=== PATIENT | female | born 1970 ===

== ENCOUNTER 2021-07-04 17:19 | Inpatient (IN) | payer OTHER ==
[~2021-07-04] VITALS: Ht 167.6 cm; Wt 98.8 kg
[2021-07-04] MEDS ORDERED: AZITHROMYCIN 500MG/ 250ML 250 ML IV ONE (17:45)
[2021-07-04] MEDS ORDERED: cefTRIAXone 1GM/50ML D5W 50 ML IV ONE (17:45)
[2021-07-04] MEDS ORDERED: DexAMETHasone SOD PHOS 10MG/1ML VIAL INJ IV ONE (17:45)
[2021-07-04] MEDS ORDERED: MORPHINE SULFATE 4 MG/ML SYR/VIAL IV PRN (18:45)
[2021-07-04] MEDS ORDERED: HYDROcodone-ACET 5/325MG TAB PO PRN (18:45)
[2021-07-04] MEDS ORDERED: REMDESIVIR PER PHARMACY 0 ML IV SCH (18:45)
[2021-07-04] MEDS ORDERED: NITROGLYCERIN 0.4 MG SL TAB SL PRN (18:45)
[2021-07-04] MEDS ORDERED: MORPHINE SULFATE INJECTION 2 MG/ML SYRG IV PRN (18:45)
[2021-07-04] MEDS ORDERED: TEMAZEPAM 15 MG CAP PO PRN (18:45)
[2021-07-04 19:12] LABS: Basophils # (auto) 0 10 ^3/uL (0-0.2); Basophils % (auto) 0.8 % (0.0-2.0); Eosinophils # (auto) 0 10 ^3/uL (0-0.8); Eosinophils % (auto) 0.1 % (0.0-7.0); Hematocrit 42.2 % (36.0-46.0); Hemoglobin 14.2 g/dL (12.2-16.2); Lymphocytes # (auto) 0.9 10 ^3/uL (0.4-5.4); Lymphocytes % (auto) 17.3 % (10.0-50.0); Mean Corpuscular Hgb Conc. 33.6 g/dL (32.0-36.0); Mean Corpuscular Volume 83.4 fL (80.0-100.0); Monocytes # (auto) 0.6 10 ^3/uL (0-1.3); Monocytes % (auto) 11.3 % (0.0-12.0); Neutrophils # (auto) 3.8 10 ^3/uL (1.6-8.6); Neutrophils % (auto) 70.5 % (37.0-80.0); Nucleated Red Blood Cells % 0.1 %; Red Blood Cells 5.06 10^6/uL (4.0-5.20); White Blood Cell 5.4 10^3/uL (4.4-10.8)
[2021-07-04] MEDS ORDERED: PROMETHAZINE W/CODEINE 5 ML ORAL SYRUP GT PRN (19:15)
[2021-07-04 19:28] LABS: Anion Gap 10 (5-15); Blood Urea Nitrogen 11 mg/dL (7-18); Carbon Dioxide 26 mmol/L (21-32); Chloride 97 mmol/L (98-107); Potassium 3.9 mmol/L (3.5-5.1); Sodium 133 mmol/L (136-145)
[2021-07-04 19:31] LABS: Alanine Aminotransferase 67 U/L (13-56); Aspartate Aminotransferase 43 U/L (15-37); BUN/Creatinine Ratio 10.7; GFR African American 72 mL/min; GFR Non-African American 60 mL/min; Glucose 354 mg/dL (74-106)
[2021-07-04 19:47] LABS: Alkaline Phosphatase 121 U/L (45-117); Bilirubin, Total 0.4 mg/dL (0.2-1.0); Total Protein 8.1 g/dL (6.4-8.2)
[2021-07-04 22:23] LABS: Urine Bacteria FEW /hpf (None Seen); Urine Blood TRACE /uL (Negative); Urine Hyaline Cast FEW /lpf (0 - 2); Urine Mucus FEW (None Seen); Urine Specific Gravity 1.027 (1.001-1.035); Urine WBC <1 /hpf (0 - 5)
[2021-07-05] VITALS (7 sets, daily range): BP systolic 108–148; BP diastolic 57–84
[2021-07-05] MEDS: ACETAMINOPHEN 325 MG TAB PO PRN (02:33)
[2021-07-05] MEDS ORDERED: IVER3TAB PO (03:31)
[2021-07-05] MEDS ORDERED: HYDR-4188 PO (03:31)
[2021-07-05 05:56] LABS: Basophils # (auto) 0 10 ^3/uL (0-0.2); Basophils % (auto) 0.3 % (0.0-2.0); Eosinophils # (auto) 0 10 ^3/uL (0-0.8); Hematocrit 39.9 % (36.0-46.0); Hemoglobin 13.3 g/dL (12.2-16.2); Lymphocytes # (auto) 0.7 10 ^3/uL (0.4-5.4); Mean Corpuscular Hemoglobin 27.9 pg (28.0-32.0); Mean Corpuscular Hgb Conc. 33.2 g/dL (32.0-36.0); Mean Corpuscular Volume 83.9 fL (80.0-100.0); Monocytes # (auto) 0.5 10 ^3/uL (0-1.3); Neutrophils # (auto) 6.2 10 ^3/uL (1.6-8.6); Neutrophils % (auto) 83.7 % (37.0-80.0); Nucleated Red Blood Cells % 0.1 %; Red Blood Cells 4.75 10^6/uL (4.0-5.20); Red Cell Distribution Width 15.1 % (11.8-14.3); White Blood Cell 7.5 10^3/uL (4.4-10.8)
[2021-07-05 06:22] LABS: Potassium 4.3 mmol/L (3.5-5.1)
[2021-07-05 06:30] LABS: Albumin 2.9 g/dL (3.4-5.0); BUN/Creatinine Ratio 18.4; Bilirubin, Total 0.4 mg/dL (0.2-1.0); Calcium 8.7 mg/dL (8.5-10.1); Total Protein 7.3 g/dL (6.4-8.2)
[2021-07-05] MEDS ORDERED: DEXTROSE (50%) 50ML SYRG IV PRN ×2 (08:45→13:30)
[2021-07-05] MEDS: AZITHROMYCIN 500MG/ 250ML 250 ML IV SCH (09:01)
[2021-07-05] MEDS: ENOXAPARIN SOD 40 MG/0.4 ML SYRINGE SC SCH (09:01)
[2021-07-05] MEDS: CHOLECALCIFEROL (VITD3) 2,000 UNIT CAP/TAB PO SCH (09:02)
[2021-07-05] MEDS: ASCORBIC ACID 500 MG TAB PO SCH (09:02)
[2021-07-05] MEDS: PANTOPRAZOLE 40 MG TAB PO SCH (09:02)
[2021-07-05] MEDS ORDERED: InsuLIN REG 1unit/0.01ml Soln (100units/ml) SC SCH ×2 (11:30→22:00)
[2021-07-05] MEDS: ACCU-CHEK COMFORT CURVE STRIP VI SCH ×5 (11:30→22:00)
[2021-07-05] MEDS ORDERED: InsuLIN REG 1unit/0.01ml Soln (100units/ml) SC ONE (11:30)
[2021-07-05] MEDS ORDERED: REMDESIVIR 200 MG in NS 210ml LOADING DOSE ADULT IV ONE (15:00)
[2021-07-05] MEDS: InsuLIN REG 1unit/0.01ml Soln (100units/ml) SC SCH ×2 (16:58→22:00)
[2021-07-06 05:00] VITALS: BP 132/77
[2021-07-06] MEDS: ACCU-CHEK COMFORT CURVE STRIP VI SCH ×6 (06:16→21:20)
[2021-07-06] MEDS: InsuLIN REG 1unit/0.01ml Soln (100units/ml) SC SCH ×4 (06:18→21:22)
[2021-07-06 08:28] VITALS: BP 138/79
[2021-07-06] MEDS: AZITHROMYCIN 500MG/ 250ML 250 ML IV SCH (11:11)
[2021-07-06] MEDS: PANTOPRAZOLE 40 MG TAB PO SCH (11:11)
[2021-07-06] MEDS: CHOLECALCIFEROL (VITD3) 2,000 UNIT CAP/TAB PO SCH (11:11)
[2021-07-06] MEDS: ASCORBIC ACID 500 MG TAB PO SCH (11:11)
[2021-07-06] MEDS: ENOXAPARIN SOD 40 MG/0.4 ML SYRINGE SC SCH (11:12)
[2021-07-06 12:31] VITALS: BP 130/78
[2021-07-06] MEDS: REMDESIVIR 100mg 100 MG in SODIUM CHL 0.9% 230 ML IV SCH (14:45)
[2021-07-06 16:36] VITALS: BP 148/84
[2021-07-06] MEDS: INSULIN LANTUS (GLARGINE) 1 /0.01ml (100units/ml) SC SCH (21:22)
[2021-07-06 22:00] VITALS: BP 126/65
[2021-07-07] MEDS: ACETAMINOPHEN 325 MG TAB PO PRN (04:32)
[2021-07-07 05:00] VITALS: BP 141/84
[2021-07-07 06:01] LABS: Potassium 3.3 mmol/L (3.5-5.1)
[2021-07-07 06:07] LABS: Albumin 2.4 g/dL (3.4-5.0); BUN/Creatinine Ratio 21.7; Calcium 8.6 mg/dL (8.5-10.1)
[2021-07-07] MEDS: ACCU-CHEK COMFORT CURVE STRIP VI SCH ×4 (06:12→22:05)
[2021-07-07] MEDS: INSULIN LANTUS (GLARGINE) 1 /0.01ml (100units/ml) SC SCH ×2 (06:16→22:01)
[2021-07-07] MEDS: InsuLIN REG 1unit/0.01ml Soln (100units/ml) SC SCH ×4 (06:16→21:59)
[2021-07-07 06:18] LABS: Bilirubin, Total 0.4 mg/dL (0.2-1.0); Total Protein 6.6 g/dL (6.4-8.2)
[2021-07-07 09:00] VITALS: BP 132/69
[2021-07-07] MEDS: AZITHROMYCIN 500MG/ 250ML 250 ML IV SCH (09:03)
[2021-07-07] MEDS: PANTOPRAZOLE 40 MG TAB PO SCH (09:03)
[2021-07-07] MEDS: ASCORBIC ACID 500 MG TAB PO SCH (09:03)
[2021-07-07] MEDS: CHOLECALCIFEROL (VITD3) 2,000 UNIT CAP/TAB PO SCH (09:03)
[2021-07-07] MEDS: ENOXAPARIN SOD 40 MG/0.4 ML SYRINGE SC SCH (09:03)
[2021-07-07 12:22] VITALS: BP 142/80
[2021-07-07 14:02] LABS: Basophils # (auto) 0 10 ^3/uL (0-0.2); Basophils % (auto) 0.4 % (0.0-2.0); Eosinophils # (auto) 0 10 ^3/uL (0-0.8); Eosinophils % (auto) 0.4 % (0.0-7.0); Hematocrit 40.4 % (36.0-46.0); Hemoglobin 13.1 g/dL (12.2-16.2); Lymphocytes % (auto) 14.6 % (10.0-50.0); Mean Corpuscular Hemoglobin 27.3 pg (28.0-32.0); Mean Corpuscular Hgb Conc. 32.6 g/dL (32.0-36.0); Mean Corpuscular Volume 83.8 fL (80.0-100.0); Monocytes # (auto) 0.7 10 ^3/uL (0-1.3); Monocytes % (auto) 11.3 % (0.0-12.0); Neutrophils # (auto) 4.8 10 ^3/uL (1.6-8.6); Neutrophils % (auto) 73.3 % (37.0-80.0); Nucleated Red Blood Cells % 0.1 %; Red Blood Cells 4.82 10^6/uL (4.0-5.20); White Blood Cell 6.6 10^3/uL (4.4-10.8)
[2021-07-07 14:26] LABS: Magnesium 2.4 mg/dL (1.6-2.6)
[2021-07-07 14:35] LABS: CRP High Sensitivity 12.3 mg/dL (< 0.3)
[2021-07-07 14:37] LABS: Thyroid Stimulating Hormone 0.62 uIU/mL (0.358-3.74)
[2021-07-07] MEDS: IVERMECTIN 3 MG TAB PO SCH (14:37)
[2021-07-07] MEDS: REMDESIVIR 100mg 100 MG in SODIUM CHL 0.9% 230 ML IV SCH (15:53)
[2021-07-07 22:00] VITALS: BP 128/77
[2021-07-08 05:00] VITALS: BP 136/74
[2021-07-08] MEDS: IVERMECTIN 3 MG TAB PO SCH (06:29)
[2021-07-08] MEDS: ACCU-CHEK COMFORT CURVE STRIP VI SCH (06:29)
[2021-07-08] MEDS: INSULIN LANTUS (GLARGINE) 1 /0.01ml (100units/ml) SC SCH ×2 (06:31→22:00)
[2021-07-08] MEDS: InsuLIN REG 1unit/0.01ml Soln (100units/ml) SC SCH ×4 (06:33→22:04)
[2021-07-08 07:05] LABS: Basophils # (auto) 0 10 ^3/uL (0-0.2); Basophils % (auto) 0.4 % (0.0-2.0); Eosinophils # (auto) 0.1 10 ^3/uL (0-0.8); Eosinophils % (auto) 0.9 % (0.0-7.0); Hematocrit 38.3 % (36.0-46.0); Hemoglobin 12.7 g/dL (12.2-16.2); Lymphocytes # (auto) 1.2 10 ^3/uL (0.4-5.4); Lymphocytes % (auto) 16.1 % (10.0-50.0); Mean Corpuscular Hemoglobin 27.4 pg (28.0-32.0); Mean Corpuscular Hgb Conc. 33.2 g/dL (32.0-36.0); Mean Corpuscular Volume 82.5 fL (80.0-100.0); Monocytes % (auto) 12.7 % (0.0-12.0); Neutrophils # (auto) 5.3 10 ^3/uL (1.6-8.6); Neutrophils % (auto) 69.9 % (37.0-80.0); Nucleated Red Blood Cells % 0.1 %; Red Blood Cells 4.64 10^6/uL (4.0-5.20); Red Cell Distribution Width 14.4 % (11.8-14.3); White Blood Cell 7.6 10^3/uL (4.4-10.8)
[2021-07-08 07:29] LABS: Potassium 3.6 mmol/L (3.5-5.1)
[2021-07-08 07:35] LABS: Albumin 2.2 g/dL (3.4-5.0); BUN/Creatinine Ratio 10.6; Calcium 8.6 mg/dL (8.5-10.1)
[2021-07-08 07:37] LABS: Bilirubin, Total 0.5 mg/dL (0.2-1.0); Total Protein 6.4 g/dL (6.4-8.2)
[2021-07-08 09:00] VITALS: BP 131/84
[2021-07-08] MEDS: AZITHROMYCIN 500MG/ 250ML 250 ML IV SCH (10:23)
[2021-07-08] MEDS: ASCORBIC ACID 500 MG TAB PO SCH (10:23)
[2021-07-08] MEDS: PANTOPRAZOLE 40 MG TAB PO SCH (10:23)
[2021-07-08] MEDS: CHOLECALCIFEROL (VITD3) 2,000 UNIT CAP/TAB PO SCH (10:24)
[2021-07-08] MEDS: ENOXAPARIN SOD 40 MG/0.4 ML SYRINGE SC SCH (10:24)
[2021-07-08] MEDS ORDERED: DEXTROSE (50%) 50ML SYRG IV PRN (11:15)
[2021-07-08 13:00] VITALS: BP 132/70
[2021-07-08] MEDS: REMDESIVIR 100mg 100 MG in SODIUM CHL 0.9% 230 ML IV SCH (15:43)
[2021-07-08 17:00] VITALS: BP 135/79
[2021-07-08 20:00] VITALS: BP 141/78
[2021-07-08 21:40] VITALS: BP 141/78
[2021-07-09 05:30] VITALS: BP_SYST 114; BP_SYST 125; BP_DIAS 65; BP_DIAS 87
[2021-07-09 06:16] LABS: Chloride 102 mmol/L (98-107); Potassium 4.1 mmol/L (3.5-5.1); Sodium 136 mmol/L (136-145)
[2021-07-09 06:21] LABS: Alanine Aminotransferase 38 U/L (13-56); Anion Gap 12 (5-15); Aspartate Aminotransferase 36 U/L (15-37); BUN/Creatinine Ratio 11.1; Blood Urea Nitrogen 7 mg/dL (7-18); Calcium 8.3 mg/dL (8.5-10.1); Carbon Dioxide 22 mmol/L (21-32); GFR African American 127 mL/min; GFR Non-African American 105 mL/min; Glucose 115 mg/dL (74-106)
[2021-07-09 06:24] LABS: Alkaline Phosphatase 96 U/L (45-117); Bilirubin, Total 0.6 mg/dL (0.2-1.0); Total Protein 6.5 g/dL (6.4-8.2)
[2021-07-09] MEDS: InsuLIN REG 1unit/0.01ml Soln (100units/ml) SC SCH ×3 (06:43→22:02)
[2021-07-09] MEDS: IVERMECTIN 3 MG TAB PO SCH (06:45)
[2021-07-09 09:00] VITALS: BP 130/71
[2021-07-09] MEDS: PANTOPRAZOLE 40 MG TAB PO SCH (09:52)
[2021-07-09] MEDS: AZITHROMYCIN 500MG/ 250ML 250 ML IV SCH (09:52)
[2021-07-09] MEDS: ENOXAPARIN SOD 40 MG/0.4 ML SYRINGE SC SCH (09:53)
[2021-07-09] MEDS: CHOLECALCIFEROL (VITD3) 2,000 UNIT CAP/TAB PO SCH (09:53)
[2021-07-09] MEDS: ASCORBIC ACID 500 MG TAB PO SCH (09:53)
[2021-07-09] MEDS: INSULIN LANTUS (GLARGINE) 1 /0.01ml (100units/ml) SC SCH ×2 (09:55→22:02)
[2021-07-09 13:00] VITALS: BP 131/81
[2021-07-09] MEDS: REMDESIVIR 100mg 100 MG in SODIUM CHL 0.9% 230 ML IV SCH (15:37)
[2021-07-09 17:00] VITALS: BP 140/78
[2021-07-09 20:00] VITALS: BP 130/81
[2021-07-09 21:33] VITALS: BP 130/81
[2021-07-09 22:31] LABS: Urine Bacteria FEW /hpf (None Seen); Urine Blood Negative /uL (Negative); Urine Specific Gravity 1.008 (1.001-1.035); Urine WBC 1 /hpf (0 - 5)
[2021-07-10 05:30] VITALS: BP 132/84
[2021-07-10] MEDS: InsuLIN REG 1unit/0.01ml Soln (100units/ml) SC SCH ×2 (06:34→12:15)
[2021-07-10] MEDS: IVERMECTIN 3 MG TAB PO SCH (06:44)
[2021-07-10 09:00] VITALS: BP 124/71
[2021-07-10] MEDS: AZITHROMYCIN 500MG/ 250ML 250 ML IV SCH (09:39)
[2021-07-10] MEDS: PANTOPRAZOLE 40 MG TAB PO SCH (09:40)
[2021-07-10] MEDS: CHOLECALCIFEROL (VITD3) 2,000 UNIT CAP/TAB PO SCH (09:40)
[2021-07-10] MEDS: ENOXAPARIN SOD 40 MG/0.4 ML SYRINGE SC SCH (09:40)
[2021-07-10] MEDS: ASCORBIC ACID 500 MG TAB PO SCH (09:40)
[2021-07-10] MEDS: INSULIN LANTUS (GLARGINE) 1 /0.01ml (100units/ml) SC SCH (09:56)
[2021-07-10 13:00] VITALS: BP 120/79
[2021-07-10 15:07] VITALS: BP 114/62
== END 2021-07-10 17:00 | disposition home or self-care (01) | DRG 177 ==
LOC: ER 17:19 → TELE 18:45 → TELE-EAST 23:56
PROVIDERS: ADMIT Nurse Practitioner; ATTEND Nurse Practitioner
PROC: XW033E5 Introduction of Remdesivir Anti-infective into Peripheral Vein, Percutaneous Approach, New Technology Group 5 (ICD-10-PCS; principal; 2021-07-04)
DX: U07.1 COVID-19 (principal); J96.01 Acute respiratory failure with hypoxia; J12.82 Pneumonia due to coronavirus disease 2019; E66.9 Obesity, unspecified; E11.9 Type 2 diabetes mellitus without complications; Z68.36 Body mass index [BMI] 36.0-36.9, adult
CPT/HCPCS: 36415; 71045; 80053; 81001; 82306; 82728; 82962; 83036; 83605; 83615; 83735; 83880; 84443; 84484; 85025; 85379; 86141; 87040; 87426; 93005; 96365; 96367; 96375; 99291; G0378; J0696; J1100; J1815